=== PATIENT | female | born 1955 | race Caucasian/White ===

== ENCOUNTER 2017-09-30 08:56 | Day surgery (SDC) | payer OTHER ==
[~2017-09-30] VITALS: Ht 160 cm; Wt 65.3 kg
[2017-09-30 10:12] VITALS: Ht 160 cm; Wt 65.3 kg
[2017-09-30] MEDS ORDERED: VIT D DAILY (10:35)
[2017-09-30] MEDS ORDERED: METFORMIN (10:35)
[2017-09-30] MEDS ORDERED: METOPROLOL (10:35)
--- NOTE | 2017-09-30 11:16 | OPPN ---
Date/Time of Note Date/Time of Note DATE: 09/30/17 TIME: 11:15 Operative Report Preoperative Diagnosis Screening Postoperative Diagnosis Internal hemorrhoids No colon neoplasm was identified Operation/Procedure Performed Colonoscopy Surgeon see signature line nutrition assistant None Anesthesia: moderate sedation Estimated blood loss: none Transfusion Required none Specimen None Grafts/Implants none Complications none RAMANDEEP JOSE MD Sep 30, 2017 11:16
[2017-09-30] MEDS ORDERED: FENTAnyl 50 MCG/ML VIAL ONE (11:35)
[2017-09-30] MEDS ORDERED: MIDAZOLAM 1 MG/ML 2 ML INJ ONE (11:36)
[2017-09-30 11:44] VITALS: BP 112/62; PULSE 59; RESP 13
--- NOTE | 2017-09-30 14:14 | GILP ---
DATE OF PROCEDURE: NAME OF PROCEDURE: Colonoscopy. SURGEON: Ramandeep Tucker MD PREOPERATIVE DIAGNOSIS: Screening colonoscopy. POSTOPERATIVE DIAGNOSES 1. Colonoscopy all the way to the cecum. 2. Internal hemorrhoids. 3. No colon neoplasm was identified. INDICATION FOR THE PROCEDURE: Ms. Esther Erickson is a 62-year-old female patient who was schedule d for screening colonoscopy. The procedure and possible complications are well explained to the patient. The patient understood and consented to the procedure. DESCRIPTION OF PROCEDURE: Under the influence of fentanyl and Versed, the colonoscope was carefully introduced in the rectum and under direct vision it was advanced all the way to the cecum. FINDINGS: The patient had internal hemorrhoids. No colon neoplasm was identified. She tolerated the procedure very well and there was no complication from the procedure. At the end of the procedure, she was awake with stable vital signs and she was discharged home to the care of h er family. IMPRESSION: Please see postoperative diagnoses. PLAN: Next screening colonoscopy in 10 years. Dictated By: RAMANDEEP VAZQUEZ/MAYANK Conf#: [id number] DID#: [id number]
== END 2017-09-30 19:16 | disposition home or self-care (01) ==
LOC: GIL 08:56
PROVIDERS: ATTEND Internal Medicine Gastroenterology
DX: Z12.11 Encounter for screening for malignant neoplasm of colon (principal); K64.8 Other hemorrhoids; E11.9 Type 2 diabetes mellitus without complications; I10 Essential (primary) hypertension
CPT/HCPCS: 45378; J2250; J3010